=== PATIENT | male | born 1955 | race Caucasian/White ===

== ENCOUNTER 2020-01-06 09:32 | Emergency (ER) | payer MEDICARE, OTHER ==
[2020-01-06] MEDS ORDERED: Acetaminophen/HYDROcodone 325-5 MG Tab PO ONE (10:05)
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
--- NOTE | 2020-01-06 10:55 | CT ---
CT facial bones Technique: Multiple axial sections through the facial bones were obtained. Reconstructed coronal and sagittal images were obtained. Findings: Soft tissue swelling is seen around the left orbit and within the left cheek. Soft tissue density is noted within the left maxillary sinus compatible with hematoma. Fracture is noted within the anterior maxillary wall with slight inward displacement by about 5.4 mm. Fracture is noted within the posteriolateral left maxillary sinus wall measuring 4.6 mm with inward displacement. Finding suspicious for minimal nondisplaced inferior orbital floor fracture on the left side. There is air being seen within the left orbit. Minimal displaced fracture is noted within the lateral left orbital wall. Small amount of air is noted external to the orbital wall. Soft tissue density is noted within the medial left orbit compatible with hematoma. No additional facial bone fracture is appreciated. Impression: 1. Fractures within the anterior and posteriolateral left maxillary sinus with mild inward displacement. Nondisplaced fracture within the inferior left orbital floor as well as minimally displaced fracture within the lateral wall of the left orbit. 2. Diffuse soft tissue swelling within the left cheek and left periorbital region. Soft tissue hematoma is noted within the medial left orbit. 3. Soft tissue air noted within the left orbit. Diagnostic code #5 This report was dictated in MDT
--- NOTE | 2020-01-06 11:14 | CR ---
Chest and left ribs: Frontal view of the chest was obtained as well as an additional 4 views of the left ribs. Comparison: No previous chest x-ray. Heart size and mediastinum are normal. Lungs show no acute parenchymal change. No discrete fracture or other left-sided rib abnormality is appreciated. Impression: 1. No discrete left-sided rib fracture. Nondisplaced fracture could be missed. 2. Nothing acute is seen on accompanying frontal chest x-ray. Diagnostic code #2 This report was dictated in MDT
== END 2020-01-06 11:58 | disposition home or self-care (01) ==
LOC: JD.ED 09:32
DX: S02.32XA Fracture of orbital floor, left side, initial encounter for closed fracture (principal); S02.40DA Maxillary fracture, left side, initial encounter for closed fracture; S20.212A Contusion of left front wall of thorax, initial encounter; S00.83XA Contusion of other part of head, initial encounter; Z79.899 Other long term (current) drug therapy; V28.2XXA Unspecified motorcycle rider injured in noncollision transport accident in nontraffic accident, initial encounter
CPT/HCPCS: 70486; 71101; 99284; A9270